=== PATIENT | female | born 1985 | race Caucasian/White ===

== ENCOUNTER → 2016-03-07 | Outpatient (CLI) | payer OTHER ==
[~2016-03-07] MED LIST: ACID REDUCER; ALBUTEROL0.09 MG/A1 IH; ALBUTEROL0.83 MG/ML IH; ALIGN; ANUSOL-HC2.5% RC; BACTRIM DS 8001 TAB PO; CENTRUM1 TAB PO; CIPRO 500MG TA500 MG PO; CLINDAMYCIN150 MG PO; DAYQUIL; DOXYCYCLINE 10100 MG PO; FASTIN30 MG PO; FLAGYL500 MG PO; FLEXERIL5 MG PO; INDERAL40 MG PO; LEVAQUIN 5500 MG/TA1 PO; LORTAB 5/500 501 TAB PO; MOTRIN 800800 MG/TAB PO; MULTIPLE VITAMI1 CAP PO; NITRO-BID22; NO HOME MEDICATIONS; NORCO 325 MG-51 TAB PO; PERCOCET 325 MG1 TA2 PO; PHENERGAN 25 TA25 MG PO; PHENERGAN W/CO120 ML PO; PREDNISONE20 MG PO; PRENATAL VITAMI1 TA5 PO; PRILOSEC 20MG20 MG PO; PROMETHAZINE12.5 M5 PO; PROVENTIL0.09 MG/A1 IH; PTU; PULMICORT0.5 MG/2 M IH; PULMICORT0.5 MG/21 IH; SEROQUEL 200MG200 MG PO; SEROQUEL 2525 MG/TAB PO; SUPRAX PO; TUSS PO; TYLENOL #3 301 UDTAB PO; ULTRAM 50MG TAB50 MG PO; VENTOLIN0.09 MG IH; ZITHROMAX 250M250 MG PO; ZITHROMAX Z PA250 MG PO; ZITHROMAX500 MG PO; ZOFRAN 4MG T4 MG/TAB PO; ZOFRAN ODT4 MG PO; ZOFRAN4 MG PO; ZOVIRAX400 MG PO; [UNRECOGNIZED DRUG - REMARK]
== END ==
LOC: BHSO 16:04
DX: F41.1 Generalized anxiety disorder (principal)

== ENCOUNTER → 2016-04-21 | Outpatient (CLI) | payer OTHER | LOC: BHSO 14:37 | DX: F41.1 Generalized anxiety disorder (principal) ==

== ENCOUNTER 2016-09-02 18:33 | Emergency (ER) | payer OTHER ==
[~2016-09-02] VITALS: Ht 157.5 cm; Wt 68.2 kg
[~2016-09-02 18:33] MED LIST changes: -ANUSOL-HC2.5% RC; -BACTRIM DS 8001 TAB PO; -FASTIN30 MG PO; -LEVAQUIN 5500 MG/TA1 PO; -NITRO-BID22; -SEROQUEL 200MG200 MG PO
[2016-09-02 18:36] VITALS: TEMP 98.8
[2016-09-02] MEDS ORDERED: SEROQUEL 200MG200 MG PO (18:40)
[2016-09-02] MEDS ORDERED: FLAGYL500 MG PO (18:41)
[2016-09-02] MEDS ORDERED: NITRO-BID22 (18:42)
[2016-09-02] MEDS ORDERED: ANUSOL-HC2.5% RC (18:42)
[2016-09-02] MEDS ORDERED: NORCO 325 MG-51 TAB PO (20:56)
[2016-09-02 21:21] VITALS: BP 148/74; PULSE 91
== END 2016-09-02 21:21 | disposition home or self-care (01) ==
LOC: COL.ER 18:33
DX: K64.5 Perianal venous thrombosis (principal); J45.909 Unspecified asthma, uncomplicated; K58.9 Irritable bowel syndrome, unspecified; Z90.710 Acquired absence of both cervix and uterus; Z90.49 Acquired absence of other specified parts of digestive tract; Z87.59 Personal history of other complications of pregnancy, childbirth and the puerperium
CPT/HCPCS: J1170; J2060; J2405; J3010

== ENCOUNTER 2016-10-02 16:58 | Emergency (ER) | payer OTHER ==
[~2016-10-02] VITALS: Ht 157.5 cm; Wt 65.9 kg
[~2016-10-02 16:58] MED LIST changes: +ANUSOL-HC2.5% RC; +NITRO-BID22; +SEROQUEL 200MG200 MG PO
[2016-10-02 17:00] VITALS: TEMP 98
[2016-10-02] MEDS ORDERED: FASTIN30 MG PO (17:16)
[2016-10-02 17:41] LABS: BASO % 0.3 % (0.0-2.0); EOS # 0.2 (0.0-0.7); EOS % 1.2 % (0-4.0); GRAN # 9.4 (1.4-6.5); GRAN % 76.7 % (42.2-75.2); HEMATOCRIT 38.8 % (37.0-47.0); HEMOGLOBIN 13.4 g/dl (12.5-16.0); LYMPH # 1.8 (1.2-3.4); LYMPH % 14.4 % (20.0-51.0); MEAN CELL VOLUME 90 fl (80.0-100.0); MEAN CORPUSCULAR HEMOGLOBIN 31 pg (27.0-31.0); MEAN CORPUSCULAR HGB CONC 35 g/dl (33.0-37.0); MEAN PLATELET VOLUME 9.2 fl (7.4-10.4); MONO # 0.9 (0.1-0.6); MONO % 7.2 % (1.7-9.3); PLATELET COUNT 292 K/mm3 (130-400); RED BLOOD COUNT 4.29 M/mm3 (4.10-5.30); REDCELL DISTRIBUTION WIDTH-CV 12.3 % (11.5-14.5); WHITE BLOOD COUNT 12.2 K/mm3 (4.8-10.8)
[2016-10-02 17:46] LABS: PH 6 (5-8); URINE APPEARANCE Hazy; URINE BACTERIA Rare /hpf; URINE BILIRUBIN Negative (NEGATIVE); URINE BLOOD Negative (NEGATIVE); URINE COLOR Yellow; URINE GLUCOSE Negative (NEGATIVE); URINE KETONE Negative (NEGATIVE); URINE RBC 0-2 /hpf; URINE UROBILINOGEN Negative (NEGATIVE); URINE WBC None Seen /hpf
[2016-10-02 17:52] LABS: ADJUSTED CALCIUM 9.3 mg/dL (8.4-10.2); ALANINE AMINOTRANSFERASE 20 U/L (9-52); ALBUMIN 4.3 gm/dL (3.5-5.0); ALKALINE PHOSPHATASE 79 U/L (50-136); ANION GAP 11 mmol/L (7-16); BLOOD UREA NITROGEN 9 mg/dL (7-17); CALCIUM 9.5 mg/dL (8.4-10.2); CARBON DIOXIDE 23 mmol/L (22-30); CHLORIDE 105 mmol/L (98-107); CREATININE, serum 0.96 mg/dL (0.52-1.25); GLUCOSE 95 mg/dL (74-106); LIPASE 87 U/L (23-300); POTASSIUM 4.1 mmol/L (3.4-5.0); SODIUM 138 mmol/L (137-145); TOTAL PROTEIN 7.5 gm/dL (6.4-8.2)
[2016-10-02 17:59] LABS: C-REACTIVE PROTEIN < 0.5 mg/dL (0.0-0.9)
[2016-10-02] MEDS ORDERED: PHENERGAN 25 TA25 MG PO (20:22)
[2016-10-02] MEDS ORDERED: LEVAQUIN 5500 MG/TA1 PO (20:22)
[2016-10-02 20:42] VITALS: BP 133/95; PULSE 73
== END 2016-10-02 20:50 | disposition home or self-care (01) ==
LOC: COL.ER 16:58
PROVIDERS: Physician Assistant
DX: R10.12 Left upper quadrant pain (principal); K21.9 Gastro-esophageal reflux disease without esophagitis; J45.909 Unspecified asthma, uncomplicated; F32.9 Major depressive disorder, single episode, unspecified; F41.9 Anxiety disorder, unspecified; F43.10 Post-traumatic stress disorder, unspecified; Z90.49 Acquired absence of other specified parts of digestive tract
CPT/HCPCS: J1170; J1885; J2405; J2550; J7030; Q9967

== ENCOUNTER 2016-10-05 04:30 | Emergency (ER) | payer OTHER ==
[~2016-10-05] VITALS: Ht 157.5 cm; Wt 65.9 kg
[~2016-10-05 04:30] MED LIST changes: +FASTIN30 MG PO; +LEVAQUIN 5500 MG/TA1 PO
[2016-10-05 04:35] VITALS: BP 118/79; TEMP 98
[2016-10-05] MEDS ORDERED: NORCO 325 MG-51 TAB PO (04:40)
[2016-10-05] MEDS ORDERED: LEVAQUIN 5500 MG/TA1 PO (04:41)
[2016-10-05] MEDS ORDERED: BACTRIM DS 8001 TAB PO (05:35)
[2016-10-05] MEDS ORDERED: PREDNISONE20 MG PO (05:35)
[2016-10-05 05:38] VITALS: PULSE 80
== END 2016-10-05 05:39 | disposition home or self-care (01) ==
LOC: COL.ER 04:30
DX: R21 Rash and other nonspecific skin eruption (principal); T37.8X5A Adverse effect of other specified systemic anti-infectives and antiparasitics, initial encounter; J45.909 Unspecified asthma, uncomplicated; N12 Tubulo-interstitial nephritis, not specified as acute or chronic; Z88.3 Allergy status to other anti-infective agents
CPT/HCPCS: J7512

== ENCOUNTER → 2017-01-17 | Outpatient (CLI) | payer OTHER ==
[~2017-01-17] MED LIST changes: +BACTRIM DS 8001 TAB PO
== END ==
LOC: BHSO 12:54
DX: F41.1 Generalized anxiety disorder (principal)

== ENCOUNTER 2017-03-02 02:58 | Emergency (ER) | payer BC, OTHER ==
[~2017-03-02] VITALS: Ht 157.5 cm; Wt 80.9 kg
[2017-03-02 03:02] VITALS: TEMP 97.6
[2017-03-02] MEDS ORDERED: SEROQUEL 2525 MG/TAB PO (03:05)
[2017-03-02] MEDS ORDERED: FISH OIL 500 M1 EAC1 PO (03:06)
[2017-03-02] MEDS ORDERED: FIBER GUMMIES2.5 GM PO (03:07)
[2017-03-02 03:34] LABS: COLLECTION METHOD CLEAN CATCH
[2017-03-02 03:36] LABS: BASO # 0.1 (0.0-0.2); BASO % 0.7 % (0.0-2.0); EOS # 0.6 (0.0-0.7); EOS % 8.1 % (0-4.0); GRAN # 3.9 (1.4-6.5); GRAN % 55.2 % (42.2-75.2); HEMATOCRIT 39.6 % (37.0-47.0); HEMOGLOBIN 13.7 g/dl (12.5-16.0); LYMPH % 27.7 % (20.0-51.0); MEAN CELL VOLUME 88 fl (80.0-100.0); MEAN CORPUSCULAR HEMOGLOBIN 30 pg (27.0-31.0); MEAN CORPUSCULAR HGB CONC 35 g/dl (33.0-37.0); MEAN PLATELET VOLUME 9.3 fl (7.4-10.4); MONO # 0.6 (0.1-0.6); MONO % 7.9 % (1.7-9.3); PLATELET COUNT 328 K/mm3 (130-400); RED BLOOD COUNT 4.51 M/mm3 (4.10-5.30)
[2017-03-02 03:40] LABS: MUCOUS Present /lpf; PH 5 (5-8); URINE APPEARANCE Clear; URINE BACTERIA None Seen /hpf; URINE BILIRUBIN Negative (NEGATIVE); URINE BLOOD Negative (NEGATIVE); URINE COLOR Yellow; URINE GLUCOSE Negative (NEGATIVE); URINE KETONE Negative (NEGATIVE); URINE LEUKOCYTE ESTERASE Negative (NEGATIVE); URINE NITRATE Negative (NEGATIVE); URINE PROTEIN(semi-quant) Negative (NEGATIVE); URINE RBC 0-2 /hpf; URINE UROBILINOGEN Negative (NEGATIVE)
[2017-03-02 03:47] LABS: ALBUMIN 4.4 gm/dL (3.5-5.0); BILIRUBIN,TOTAL 0.4 mg/dL (0.0-1.0); CREATININE, serum 0.76 mg/dL (0.52-1.25); POTASSIUM 4.4 mmol/L (3.4-5.0); TOTAL PROTEIN 7.8 gm/dL (6.4-8.2)
[2017-03-02 05:13] VITALS: BP 114/78; PULSE 81
== END 2017-03-02 05:25 | disposition home or self-care (01) ==
LOC: COL.ER 02:58
PROVIDERS: Emergency Medicine
DX: K52.9 Noninfective gastroenteritis and colitis, unspecified (principal); J45.909 Unspecified asthma, uncomplicated; F43.10 Post-traumatic stress disorder, unspecified; Z90.49 Acquired absence of other specified parts of digestive tract; Z90.710 Acquired absence of both cervix and uterus; Z98.890 Other specified postprocedural states; Z98.51 Tubal ligation status; Z87.891 Personal history of nicotine dependence
CPT/HCPCS: J2765; J3010; J7030; Q9967

== ENCOUNTER 2017-12-26 11:10 | Emergency (ER) | payer OTHER ==
[~2017-12-26] VITALS: Ht 157.5 cm; Wt 90.0 kg
[~2017-12-26 11:10] MED LIST changes: +FIBER GUMMIES2.5 GM PO; +FISH OIL 500 M1 EAC1 PO
[2017-12-26 11:17] VITALS: BP 137/81; TEMP 98.2
[2017-12-26 12:30] LABS: COLLECTION METHOD CLEAN CATCH
[2017-12-26 12:32] LABS: BASO # 0.1 (0.0-0.2); BASO % 0.7 % (0.0-2.0); EOS # 1.1 (0.0-0.7); EOS % 8.9 % (0-4.0); GRAN # 8.1 (1.4-6.5); GRAN % 66.1 % (42.2-75.2); HEMATOCRIT 39.9 % (37.0-47.0); HEMOGLOBIN 13.5 g/dl (12.5-16.0); LYMPH # 2.2 (1.2-3.4); MEAN CELL VOLUME 90 fl (80.0-100.0); MEAN CORPUSCULAR HEMOGLOBIN 30 pg (27.0-31.0); MEAN CORPUSCULAR HGB CONC 34 g/dl (33.0-37.0); MEAN PLATELET VOLUME 9.3 fl (7.4-10.4); MONO # 0.7 (0.1-0.6); MONO % 5.5 % (1.7-9.3); PLATELET COUNT 344 K/mm3 (130-400); RED BLOOD COUNT 4.46 M/mm3 (4.10-5.30); REDCELL DISTRIBUTION WIDTH-CV 11.9 % (11.5-14.5)
[2017-12-26 12:36] LABS: MUCOUS Present /lpf; PH 7 (5-8); URINE APPEARANCE Clear; URINE BACTERIA None Seen /hpf; URINE BILIRUBIN Negative (NEGATIVE); URINE BLOOD Negative (NEGATIVE); URINE COLOR Yellow; URINE GLUCOSE Negative (NEGATIVE); URINE KETONE Negative (NEGATIVE); URINE LEUKOCYTE ESTERASE Negative (NEGATIVE); URINE NITRATE Negative (NEGATIVE); URINE PROTEIN(semi-quant) Negative (NEGATIVE); URINE UROBILINOGEN Negative (NEGATIVE)
[2017-12-26 12:44] LABS: ALANINE AMINOTRANSFERASE 32 U/L (9-52); ALBUMIN 4.3 gm/dL (3.5-5.0); ALKALINE PHOSPHATASE 90 U/L (50-136); ANION GAP 4 mmol/L (7-16); AST,SGOT 23 U/L (15-37); BILIRUBIN,TOTAL 0.4 mg/dL (0.0-1.0); BLOOD UREA NITROGEN 11 mg/dL (7-17); CALCIUM 9.2 mg/dL (8.4-10.2); CARBON DIOXIDE 30 mmol/L (22-30); CHLORIDE 106 mmol/L (98-107); CREATININE, serum 0.71 mg/dL (0.52-1.25); GLUCOSE 85 mg/dL (74-106); LIPASE 92 U/L (23-300); POTASSIUM 4.3 mmol/L (3.4-5.0); SODIUM 140 mmol/L (137-145); TOTAL PROTEIN 7.8 gm/dL (6.4-8.2)
[2017-12-26 12:45] LABS: C-REACTIVE PROTEIN < 0.5 mg/dL (0.0-0.9)
[2017-12-26] MEDS ORDERED: ZOFRAN 4MG T4 MG/TAB PO (15:37)
[2017-12-26 16:05] VITALS: PULSE 74
== END 2017-12-26 16:05 | disposition home or self-care (01) ==
LOC: COL.ER 11:10
PROVIDERS: Physician Assistant
DX: N83.201 Unspecified ovarian cyst, right side (principal); R11.10 Vomiting, unspecified; Z88.2 Allergy status to sulfonamides; J45.909 Unspecified asthma, uncomplicated; Z90.49 Acquired absence of other specified parts of digestive tract; Z87.442 Personal history of urinary calculi; Z90.710 Acquired absence of both cervix and uterus; Z98.51 Tubal ligation status; Z98.890 Other specified postprocedural states
CPT/HCPCS: J2550; J7030; Q9967

== ENCOUNTER 2018-01-07 12:28 | Emergency (ER) | payer OTHER ==
[~2018-01-07] VITALS: Ht 157.5 cm; Wt 82.7 kg
[2018-01-07 12:33] VITALS: TEMP 98.9
[2018-01-07 13:19] LABS: HEMATOCRIT 41.4 % (37.0-47.0); HEMOGLOBIN 14.6 g/dl (12.5-16.0); MEAN CELL VOLUME 87 fl (80.0-100.0); MEAN CORPUSCULAR HEMOGLOBIN 31 pg (27.0-31.0); MEAN CORPUSCULAR HGB CONC 35 g/dl (33.0-37.0); PLATELET COUNT 380 K/mm3 (130-400); RED BLOOD COUNT 4.77 M/mm3 (4.10-5.30); REDCELL DISTRIBUTION WIDTH-CV 11.9 % (11.5-14.5)
[2018-01-07 13:32] LABS: BAND 9 % (0-10); EOSINOPHIL 4 % (0-4); LYMPHOCYTE 14 % (20.0-51.0); NEUTROPHILS 69 % (42.0-75.2); PLATELET ESTIMATE NORMAL (NORMAL)
[2018-01-07 13:36] LABS: ALBUMIN 4.4 gm/dL (3.5-5.0); BILIRUBIN,TOTAL 0.7 mg/dL (0.0-1.0); C-REACTIVE PROTEIN 0.7 mg/dL (0.0-0.9); CALCIUM 9.7 mg/dL (8.4-10.2); CREATININE, serum 0.87 mg/dL (0.52-1.25); POTASSIUM 4.2 mmol/L (3.4-5.0); TOTAL PROTEIN 8.5 gm/dL (6.4-8.2)
[2018-01-07] MEDS ORDERED: VITAMIN C500 MG PO (13:38)
[2018-01-07] MEDS ORDERED: MAGNESIUM500 MG PO (13:39)
[2018-01-07] MEDS ORDERED: VITAMIN D31000 I1 PO (13:40)
[2018-01-07] MEDS ORDERED: VITAMINE200 PO (13:41)
[2018-01-07 14:09] LABS: COLLECTION METHOD CLEAN CATCH
[2018-01-07 14:17] LABS: MUCOUS Present /lpf; PH 5 (5-8); SQUAMOUS EPITHELIAL 0-2 /hpf; URINE APPEARANCE Clear; URINE BACTERIA None Seen /hpf; URINE BILIRUBIN Negative (NEGATIVE); URINE BLOOD Negative (NEGATIVE); URINE COLOR Yellow; URINE GLUCOSE Negative (NEGATIVE); URINE KETONE 1+ (NEGATIVE); URINE LEUKOCYTE ESTERASE Negative (NEGATIVE); URINE NITRATE Negative (NEGATIVE); URINE PROTEIN(semi-quant) Negative (NEGATIVE); URINE RBC 0-2 /hpf
[2018-01-07] MEDS ORDERED: PHENERGAN 25 TA25 MG PO (14:58)
[2018-01-07 15:56] VITALS: BP 137/89; PULSE 75
== END 2018-01-07 16:03 | disposition home or self-care (01) ==
LOC: COL.ER 12:28
PROVIDERS: Emergency Medicine
DX: K59.00 Constipation, unspecified (principal); R11.10 Vomiting, unspecified; F43.10 Post-traumatic stress disorder, unspecified; J45.909 Unspecified asthma, uncomplicated; Z90.49 Acquired absence of other specified parts of digestive tract; Z98.890 Other specified postprocedural states; Z87.442 Personal history of urinary calculi; Z90.710 Acquired absence of both cervix and uterus; Z88.2 Allergy status to sulfonamides
CPT/HCPCS: J2550; J7030

== ENCOUNTER 2020-05-29 09:06 | Emergency (ER) | payer SELFPAY ==
[~2020-05-29] VITALS: Ht 157.5 cm; Wt 100.0 kg
[~2020-05-29 09:06] MED LIST changes: +MAGNESIUM500 MG PO; +VITAMIN C500 MG PO; +VITAMIN D31000 I1 PO; +VITAMINE200 PO
[2020-05-29 09:14] VITALS: TEMP 98.3
[2020-05-29 09:51] LABS: COLLECTION METHOD CLEAN CATCH
[2020-05-29 10:02] LABS: BASO # 0.1 (0.0-0.2); BASO % 0.5 % (0.0-2.0); EOS # 0.4 (0.0-0.7); EOS % 3.6 % (0-4.0); GRAN % 70.7 % (42.2-75.2); HEMATOCRIT 37.5 % (37.0-47.0); HEMOGLOBIN 12.8 g/dl (12.5-16.0); LYMPH # 1.8 (1.2-3.4); LYMPH % 17.9 % (20.0-51.0); MEAN CELL VOLUME 87 fl (80.0-100.0); MEAN CORPUSCULAR HEMOGLOBIN 30 pg (27.0-31.0); MEAN CORPUSCULAR HGB CONC 34 g/dl (33.0-37.0); MEAN PLATELET VOLUME 9.2 fl (7.4-10.4); MONO # 0.6 (0.1-0.6); MONO % 6.4 % (1.7-9.3); PLATELET COUNT 338 K/mm3 (130-400); RED BLOOD COUNT 4.32 M/mm3 (4.10-5.30); REDCELL DISTRIBUTION WIDTH-CV 12.5 % (11.5-14.5)
[2020-05-29 10:05] LABS: PH 7 (5-8); URINE APPEARANCE Hazy; URINE BACTERIA None Seen /hpf; URINE BILIRUBIN Negative (NEGATIVE); URINE BLOOD Negative (NEGATIVE); URINE COLOR Straw; URINE GLUCOSE Negative (NEGATIVE); URINE KETONE Negative (NEGATIVE); URINE LEUKOCYTE ESTERASE Negative (NEGATIVE); URINE NITRATE Negative (NEGATIVE); URINE PROTEIN(semi-quant) Negative (NEGATIVE); URINE RBC 0-2 /hpf; URINE UROBILINOGEN Negative (NEGATIVE)
[2020-05-29 10:11] LABS: ALANINE AMINOTRANSFERASE 16 U/L (4-34); ALBUMIN 3.8 gm/dL (3.5-5.0); ALKALINE PHOSPHATASE 97 U/L (50-136); ANION GAP 9 mmol/L (7-16); AST,SGOT 20 U/L (15-37); BILIRUBIN,TOTAL 0.1 mg/dL (0.0-1.0); BLOOD UREA NITROGEN 14 mg/dL (7-17); C-REACTIVE PROTEIN < 0.5 mg/dL (0.0-0.9); CALCIUM 9.4 mg/dL (8.4-10.2); CARBON DIOXIDE 23 mmol/L (22-30); CHLORIDE 107 mmol/L (98-107); CREATININE, serum 0.66 (0.52-1.25); GLUCOSE 119 mg/dL (74-106); LIPASE 228 U/L (23-300); POTASSIUM 3.9 mmol/L (3.4-5.0); SODIUM 139 mmol/L (137-145); TOTAL PROTEIN 7.4 gm/dL (6.4-8.2)
[2020-05-29] MEDS ORDERED: NORCO 325 MG-51 TAB PO (10:57)
[2020-05-29 11:25] VITALS: BP 141/86; PULSE 94
== END 2020-05-29 11:25 | disposition home or self-care (01) ==
LOC: COL.ER 09:06
PROVIDERS: Family Medicine
DX: R10.31 Right lower quadrant pain (principal); R11.2 Nausea with vomiting, unspecified; Z90.49 Acquired absence of other specified parts of digestive tract; Z90.710 Acquired absence of both cervix and uterus; Z90.721 Acquired absence of ovaries, unilateral; Z88.2 Allergy status to sulfonamides; Z88.8 Allergy status to other drugs, medicaments and biological substances; Z79.4 Long term (current) use of insulin; Z79.51 Long term (current) use of inhaled steroids
CPT/HCPCS: C9113; J2270; J2405; J7120; Q9967

== ENCOUNTER 2020-10-21 19:17 | Emergency (ER) | payer OTHER ==
[~2020-10-21] VITALS: Ht 157.5 cm; Wt 95.5 kg
[2020-10-21 19:32] VITALS: TEMP 99
[2020-10-21 21:05] VITALS: BP 142/85; PULSE 85
== END 2020-10-21 21:05 | disposition home or self-care (01) ==
LOC: COL.ER 19:17
DX: S80.861A Insect bite (nonvenomous), right lower leg, initial encounter (principal); W57.XXXA Bitten or stung by nonvenomous insect and other nonvenomous arthropods, initial encounter
CPT/HCPCS: J1100

== ENCOUNTER 2020-11-06 16:24 | Emergency (ER) | payer OTHER ==
[~2020-11-06] VITALS: Ht 157.5 cm; Wt 94.5 kg
[2020-11-06 17:28] LABS: BASO % 0.3 % (0.0-2.0); EOS # 0.2 (0.0-0.7); EOS % 1.9 % (0-4.0); GRAN # 10.3 (1.4-6.5); GRAN % 82.6 % (42.2-75.2); HEMATOCRIT 34.6 % (37.0-47.0); HEMOGLOBIN 11.9 g/dl (12.5-16.0); LYMPH # 1.2 (1.2-3.4); LYMPH % 9.4 % (20.0-51.0); MEAN CELL VOLUME 87 fl (80.0-100.0); MEAN CORPUSCULAR HEMOGLOBIN 30 pg (27.0-31.0); MEAN CORPUSCULAR HGB CONC 34 g/dl (33.0-37.0); MEAN PLATELET VOLUME 9.6 fl (7.4-10.4); MONO # 0.7 (0.1-0.6); MONO % 5.4 % (1.7-9.3); PLATELET COUNT 292 K/mm3 (130-400); RED BLOOD COUNT 3.98 M/mm3 (4.10-5.30); REDCELL DISTRIBUTION WIDTH-CV 12.5 % (11.5-14.5)
[2020-11-06 17:39] LABS: COLLECTION METHOD CLEAN CATCH
[2020-11-06 17:43] LABS: ALANINE AMINOTRANSFERASE 18 U/L (4-34); ALBUMIN 4.1 gm/dL (3.5-5.0); ALKALINE PHOSPHATASE 92 U/L (50-136); ANION GAP 11 mmol/L (7-16); AST,SGOT 24 U/L (15-37); BILIRUBIN,TOTAL 0.4 mg/dL (0.0-1.0); BLOOD UREA NITROGEN 18 mg/dL (7-17); CALCIUM 8.6 mg/dL (8.4-10.2); CARBON DIOXIDE 22 mmol/L (22-30); CHLORIDE 106 mmol/L (98-107); CREATINE KINASE 119 U/L (30-135); CREATININE, serum 1.22 (0.52-1.25); GLUCOSE 93 mg/dL (74-106); POTASSIUM 3.5 mmol/L (3.4-5.0); SODIUM 139 mmol/L (137-145); TOTAL PROTEIN 7.2 gm/dL (6.4-8.2)
[2020-11-06 17:45] LABS: C-REACTIVE PROTEIN < 0.5 mg/dL (0.0-0.9)
[2020-11-06 17:58] LABS: MUCOUS Present /lpf; PH 5 (5-8); URINE APPEARANCE Hazy; URINE BACTERIA None Seen /hpf; URINE BILIRUBIN Negative (NEGATIVE); URINE BLOOD Negative (NEGATIVE); URINE COLOR Yellow; URINE GLUCOSE Negative (NEGATIVE); URINE KETONE Negative (NEGATIVE); URINE LEUKOCYTE ESTERASE Negative (NEGATIVE); URINE NITRATE Negative (NEGATIVE); URINE PROTEIN(semi-quant) Negative (NEGATIVE); URINE RBC 0-2 /hpf; URINE UROBILINOGEN Negative (NEGATIVE)
[2020-11-06 18:39] VITALS: BP 141/89; PULSE 87; TEMP 98
== END 2020-11-06 18:39 | disposition home or self-care (01) ==
LOC: COL.ER 16:24
PROVIDERS: Family Medicine
DX: T67.5XXA Heat exhaustion, unspecified, initial encounter (principal); E86.0 Dehydration; X30.XXXA Exposure to excessive natural heat, initial encounter
CPT/HCPCS: J2405; J7120

== ENCOUNTER 2021-04-15 15:29 | Emergency (ER) | payer BC ==
[~2021-04-15] VITALS: Ht 157.5 cm; Wt 88.2 kg
[2021-04-15 15:48] VITALS: TEMP 98.1
[2021-04-15 16:33] LABS: BASO % 0.4 % (0.0-2.0); EOS % 0.3 % (0.0-4.0); GRAN % 76.7 % (42.2-75.2); HEMATOCRIT 38.3 % (37.0-47.0); HEMOGLOBIN 13.4 g/dl (12.5-16.0); LYMPH # 1.8 K/mm3 (1.2-3.4); LYMPH % 17.4 % (20.0-51.0); MEAN CELL VOLUME 85 fl (80.0-100.0); MEAN CORPUSCULAR HEMOGLOBIN 30 pg (27-31); MEAN CORPUSCULAR HGB CONC 35 g/dl (33.0-37.0); MONO # 0.5 K/mm3 (0.1-0.6); MONO % 4.3 % (1.7-9.3); PLATELET COUNT 380 K/mm3 (130-400); RED BLOOD COUNT 4.52 M/mm3 (4.10-5.30); REDCELL DISTRIBUTION WIDTH-CV 12.6 % (11.5-14.5)
[2021-04-15 16:51] LABS: ALBUMIN 3.6 gm/dL (3.5-5.0); BILIRUBIN,TOTAL 0.3 mg/dL (0.2-1.2); CALCIUM 8.5 mg/dL (8.4-10.2); CREATININE, serum 0.83 mg/dL (0.57-1.11); POTASSIUM 3.6 mmol/L (3.5-4.5); TOTAL PROTEIN 7.3 gm/dL (6.2-8.1)
[2021-04-15] MEDS ORDERED: DOXYCYCLINE HY100 MG PO (17:40)
[2021-04-15 17:50] VITALS: BP 163/94; PULSE 79
== END 2021-04-15 17:50 | disposition home or self-care (01) ==
LOC: COL.ER 15:29
PROVIDERS: Physician Assistant
DX: J32.0 Chronic maxillary sinusitis (principal); B34.9 Viral infection, unspecified; Z88.1 Allergy status to other antibiotic agents; Z88.2 Allergy status to sulfonamides
CPT/HCPCS: J2405; J7030

== ENCOUNTER 2021-05-11 14:51 | Emergency (ER) | payer BC ==
[~2021-05-11] VITALS: Ht 157.5 cm; Wt 86.4 kg
[~2021-05-11 14:51] MED LIST changes: +DOXYCYCLINE HY100 MG PO
[2021-05-11 15:28] LABS: COLLECTION METHOD CLEAN CATCH
[2021-05-11 15:40] LABS: MUCOUS Present (NOT PRESENT); PH 6 (5-8); URINE APPEARANCE Clear (CLEAR/HAZY); URINE BACTERIA None Seen /hpf (NONE SEEN); URINE BILIRUBIN Negative (NEGATIVE); URINE BLOOD Negative (NEGATIVE); URINE COLOR Yellow (YELLOW); URINE GLUCOSE Negative (NEGATIVE); URINE KETONE Negative (NEGATIVE); URINE LEUKOCYTE ESTERASE Negative (NEGATIVE); URINE NITRATE Negative (NEGATIVE); URINE PROTEIN(semi-quant) Negative (NEGATIVE); URINE RBC 0-2 /hpf (0-2); URINE UROBILINOGEN Negative (NEGATIVE)
[2021-05-11 15:52] LABS: BASO % 0.4 % (0.0-2.0); EOS # 0.2 K/mm3 (0.0-0.7); EOS % 2.9 % (0.0-4.0); GRAN # 5.6 K/mm3 (1.4-6.5); GRAN % 69.9 % (42.2-75.2); HEMATOCRIT 38.7 % (37.0-47.0); HEMOGLOBIN 13.6 g/dl (12.5-16.0); LYMPH # 1.6 K/mm3 (1.2-3.4); LYMPH % 20.2 % (20.0-51.0); MEAN CELL VOLUME 86 fl (80.0-100.0); MEAN CORPUSCULAR HEMOGLOBIN 30 pg (27-31); MEAN CORPUSCULAR HGB CONC 35 g/dl (33.0-37.0); MEAN PLATELET VOLUME 8.9 fl (7.4-10.4); MONO # 0.5 K/mm3 (0.1-0.6); MONO % 6.2 % (1.7-9.3); PLATELET COUNT 325 K/mm3 (130-400); REDCELL DISTRIBUTION WIDTH-CV 13.1 % (11.5-14.5)
[2021-05-11 16:12] LABS: ALBUMIN 3.7 gm/dL (3.5-5.0); BILIRUBIN,TOTAL 0.6 mg/dL (0.2-1.2); C-REACTIVE PROTEIN 0.22 mg/dL (0.00-0.50); CALCIUM 8.7 mg/dL (8.4-10.2); CREATININE, serum 0.77 mg/dL (0.57-1.11); MAGNESIUM 1.8 mg/dL (1.6-2.6); POTASSIUM 3.8 mmol/L (3.5-4.5); TOTAL PROTEIN 7.3 gm/dL (6.2-8.1)
[2021-05-11 17:28] VITALS: BP 159/101; PULSE 81; TEMP 98.2
== END 2021-05-11 17:41 | disposition home or self-care (01) ==
LOC: COL.ER 14:51
PROVIDERS: Emergency Medicine
DX: R10.13 Epigastric pain (principal); R11.2 Nausea with vomiting, unspecified; Z90.49 Acquired absence of other specified parts of digestive tract
CPT/HCPCS: C9113; J2405; J3010; J7120; Q9967

== ENCOUNTER 2021-08-18 02:03 | Emergency (ER) | payer BC ==
[~2021-08-18] VITALS: Ht 157.5 cm; Wt 90.9 kg
[2021-08-18 02:08] VITALS: TEMP 99
[2021-08-18 02:23] LABS: BASO # 0.1 K/mm3 (0.0-0.2); BASO % 0.4 % (0.0-2.0); EOS # 0.3 K/mm3 (0.0-0.7); EOS % 1.9 % (0.0-4.0); GRAN # 11.2 K/mm3 (1.4-6.5); GRAN % 83.7 % (42.2-75.2); HEMATOCRIT 38.3 % (37.0-47.0); HEMOGLOBIN 13.6 g/dl (12.5-16.0); LYMPH # 0.8 K/mm3 (1.2-3.4); LYMPH % 5.7 % (20.0-51.0); MEAN CELL VOLUME 85 fl (80.0-100.0); MEAN CORPUSCULAR HEMOGLOBIN 30 pg (27-31); MEAN CORPUSCULAR HGB CONC 36 g/dl (33.0-37.0); MEAN PLATELET VOLUME 9.3 fl (7.4-10.4); MONO # 1.1 K/mm3 (0.1-0.6); MONO % 7.9 % (1.7-9.3); PLATELET COUNT 331 K/mm3 (130-400); RED BLOOD COUNT 4.51 M/mm3 (4.10-5.30); REDCELL DISTRIBUTION WIDTH-CV 11.9 % (11.5-14.5)
[2021-08-18 02:26] LABS: INR 1.1 (0.8-3.0); PROTHROMBIN TIME 12.2 SECONDS (9.7-12.8)
[2021-08-18 02:29] LABS: PARTIAL THROMBOPLASTIN TIME 36.3 SECONDS (26.0-37.0)
[2021-08-18 02:40] LABS: ALANINE AMINOTRANSFERASE 15 U/L (0-55); ALKALINE PHOSPHATASE 87 U/L (40-150); ANION GAP 14 mmol/L (7-16); AST,SGOT 18 U/L (5-34); BILIRUBIN,TOTAL 0.5 mg/dL (0.2-1.2); BLOOD UREA NITROGEN 14 mg/dL (7-19); CALCIUM 9.3 mg/dL (8.4-10.2); CARBON DIOXIDE 21 mmol/L (22-29); CHLORIDE 103 mmol/L (98-107); CREATININE, serum 1.09 mg/dL (0.57-1.11); GLUCOSE 128 mg/dL (70-99); POTASSIUM 3.3 mmol/L (3.5-4.5); SODIUM 138 mmol/L (136-145); TOTAL PROTEIN 8.1 gm/dL (6.2-8.1)
[2021-08-18 03:07] LABS: TROPONIN-I < 0.010 ng/mL (0.00-0.033)
[2021-08-18] MEDS ORDERED: PAXLOVID CO-PA1 EACH PO (04:35)
[2021-08-18 04:47] VITALS: BP 128/84; PULSE 86
== END 2021-08-18 04:50 | disposition home or self-care (01) ==
LOC: COL.ER 02:03
PROVIDERS: Family Medicine
DX: U07.1 COVID-19 (principal)
CPT/HCPCS: J1885; J7120